=== PATIENT | male | born 1980 | race Two or more races ===

== ENCOUNTER 2025-03-28 16:58 | Emergency (ER) | payer OTHER ==
[~2025-03-28] VITALS: Ht 198.1 cm; Wt 196.6 kg
--- NOTE | 2025-03-28 19:23 | DVH ---
XY CHEST TWO VIEWS ROUTINE CLINICAL HISTORY: sob COMPARISON: None TECHNIQUE: Frontal and lateral view of the chest was obtained FINDINGS: Lines and Tubes: None Lungs: No focal consolidation. Pleura: No effusion. No pneumothorax. Cardiomediastinal contours: Unremarkable Bones: No acute osseous abnormality. IMPRESSION: 1. No acute cardiopulmonary disease.
--- NOTE | 2025-03-28 20:00 | ED.PDOC ---
History of Present Illness HPI Comments 44 y/o morbidly obese M presents with c/c of flu-like symptoms. Patient endorses on having fever, chills, shortness of breath, and dizziness, intermittently, for the past few weeks. No relief or improvement with [id number] cough medications. No known recent sick contacts. Denies any further pertinent h istory/events. Denies any further acute symptoms. Chief Complaint: Flu like Time Seen by MD: 19:55 Reviewed Notes: Nurses Notes, Medications, Allergies Allergies: Coded Allergies: No Known Drug Allergy (Verified Allergy, Unknown, 03/28/25) Home Meds Active Scripts Methylprednisolone (Medrol Dosepak) 4 Mg Aaron, 4 MG PO UD for 6 Days, #21 TAB UAD Prov:FANNIE GARCIA [facility] 03/28/25 Amoxicillin & Pot Clavulanate (AUGMENTIN TABLET) 875 Mg Tb, 875 MG PO BID for 10 Days, #20 TAB Prov:FANNIE GARCIA [facility] 03/28/25 Information Source: Patient Mode of Arrival: Ambulatory Severity: Moderate Timing: Hours Duration: Since onset Prehospital treatment: None Past Medical History PAST MEDICAL HISTORY: Denies Surgical History: Denies all surgeries Social History Smoker: Non-Smoker Alcohol: Denies ETOH Use Drugs: Denies Drug Use Lives In: Home All Other Systems: Reviewed and Negative (As per HPI) Physical Exam General Appearance: No Apparent Distress, Normal HEENT: Pharyngeal Erythema, TMs Normal, Other (Tonsils grade 4) Neck: Full Range of Motion, Non-Tender, Normal, Normal Inspection Respiratory: Chest Non-Tender, Lungs Clear, No Accessory Muscle Use, No Respiratory Distress, Normal Breath Sounds Cardiovascular: No Edema, No JVD, No Murmur, No Gallop, Normal Peripheral Pulses, Regular Rate/Rhythm Breast Exam: Deferred Gastrointestinal: No Organomegaly, Non Tender, No Pulsatile Mass, Normal Bowel Sounds, Soft Genitalia: Deferred Pelvic: Deferred Rectal: Deferred Extremities: Normal capillary refill, Normal range of motion, No pedal edema Musculoskeletal : Apperance: Normal Neurologic: Alert, No Motor Deficits, Normal Affect, Normal Mood, No Sensory Deficits Cerebellar Function: Normal Reflexes: NOT DONE Skin: Dry, Normal Color, Warm Lymphatic: No Adenopathy Was a procedure done? Was a procedure done?: No Differential Dx Considerations may include: URI, viral, pneumonia, among others X-Ray, Labs, Meds, VS Vital Signs Date Time Temp Pulse Resp B/P (MAP) Pulse Ox O2 Delivery O2 Flow Rate FiO2 03/28/25 16:59 98.9 109 16 160/86 96 98.9 [facility] [address] [facility] [address] Ph: [phone] DIAGNOSTIC IMAGING Diagnostic Imaging Report : [id number] Signed PATIENT: GIDEON MARTINEZ ACCT: [id number] UNIT: [id number] : 1980 LOC: ER ROOM / BED: / AGE / SEX: 44 / M ADM STATUS: REG ER SERVICE 01 ORDERING PHYSICIAN: FANNIE GARCIA PROCEDURE(s): CXR2 - CHEST TWO VIEWS ROUTINE REASON: sob ORDER NUMBER(s): [id number], ACCESSION NUMBER(s): [id number] XY CHEST TWO VIEWS ROUTINE CLINICAL HISTORY: sob COMPARISON: None TECHNIQUE: Frontal and lateral view of the chest was obtained FINDINGS: Lines and Tubes: None Lungs: No focal consolidation. Pleura: No effusion. No pneumothorax. Cardiomediastinal contours: Unremarkable Bones: No acute osseous abnormality. IMPRESSION: 1. No acute cardiopulmonary disease. ATED BY: ELEAZAR CARTAGENA Jr., DO DICTATED DATE/TIME: 03/28/251920 SIGNED BY: ELEAZAR CARTAGENA Jr., SIGNED DATE/TIME: 03/28/251920 CC: X-Ray, Labs, Meds, VS Comment Chest x-ray shows no acute pulmonary finding. Likely infected acute tonsillitis Script trial of antibiotics and steroid. Advised to take medication as prescribed side effects discussed. Advised to rest increase p.o. fluids with electrolytes. Follow up with your PCP in three days if no improvement. ER return precautions given patient indicates understanding and agrees with discharge plan of care. Images Reviewed?: Images reviewed and evaluated by me Time of 1ST Reevaluation: 20:25 Reevaluation 1ST: Unchanged Time of 2ND Reevaluation: 20:08 Reevaluation 2ND: Improved Patient Education/Counseling: Diagnosis, Treatment Family Education/Counseling: No Family Present SEPSIS Sepsis Screen Date sepsis recognized/suspect: Mar 28, 2025 Time Sepsis recognized/suspect: 1701 Recent Procedure: No On Antibiotic Therapy: No Respiratory Rate >20: No Heart Rate >90: No Temp<36 C (96.8 F) or >38.3 C: No SBP <90 or MAP <65 mmHG: No New Acute Mental Status Change: No Is the patient on CPAP, BIPAP,: No Physician Orders Chest Two Views Routine (03/28/25 18:02) Vital Signs Date Time Temp Pulse Resp B/P (MAP) Pulse Ox O2 Delivery O2 Flow Rate FiO2 03/28/25 16:59 98.9 109 16 160/86 96 98.9 Departure 1 Departure Time of Disposition: 20:08 Impression: Primary Impression: Acute tonsillitis Qualified Codes: J03.90 - Acute tonsillitis, unspecified Disposition: HOME / SELF CARE / HOMELESS Condition: Stable e-Prescriptions Methylprednisolone (Medrol Dosepak) 4 Mg Aaron 4 MG PO UD for 6 Days, #21 TAB UAD Prov: FANNIE GARCIA 03/28/25 Amoxicillin & Pot Clavulanate (AUGMENTIN TABLET) 875 Mg Tb 875 MG PO BID for 10 Days, #20 TAB Prov: FANNIE GARCIA 03/28/25 Discharged With: Self Critical Care Note Critical Care Time?: No Stability Stability form required: No Heart Score Heart Score: Heart Score Response (Comments) Value History N/A 0 EKG N/A 0 Age N/A 0 Risk Factors N/A 0 Troponin N/A 0 Total 0 I personally scribed for ER ([email or web address]) on 03/28/25 at 20:00. Electronically submitted by Gideon Stacy ([email or web address]). ER Mar 28, 2025 20:00 FANNIE GARCIA [facility] Mar 28, 2025 20:04
[2025-03-28] MEDS ORDERED: METH4PAK PO (20:04)
[2025-03-28] MEDS ORDERED: AUG875T PO (20:04)
[2025-03-28 20:27] VITALS: BP 132/88; PULSE 93; RESP 18; TEMP 99.2; O2SAT 95
== END 2025-03-28 20:27 | disposition home or self-care (01) ==
LOC: ER 16:58
DX: J03.90 Acute tonsillitis, unspecified (principal); Z79.899 Other long term (current) drug therapy
CPT/HCPCS: 71046